=== PATIENT | male | born 1955 | race African-American/Black ===

== ENCOUNTER 2017-02-03 07:30 | Inpatient (IN) | payer OTHER ==
[~2017-02-03] VITALS: Ht 177.8 cm; Wt 106.1 kg
--- NOTE | 2017-02-19 22:51 | Pre-op HX & Phy Repo 2 SIG ---
DATE OF ADMISSION: 02/20/2017 HISTORY OF PRESENT ILLNESS: The patient is a 61-year-old patient preoperative sexual reassignment surgery male to female in overall good health. OPERATIONS: none. MEDICATIONS: Hormones. ALLERGIES: Penicillin causes severe skin reaction. REVIEW OF SYSTEMS: The patient has no gastrointestinal symptoms and has a normal bowel movement every morning. The patient has nocturia x1. PHYSICAL EXAMINATION: VITAL SIGNS: The patient is 5 feet 10 inches and 230 pounds. ABDOMEN: Slightly obese, but soft. EXTREMITIES: Femoral pulses are 2+ bilaterally. RECTAL: Reveals the perianal skin is normal and there is no prolapse with straining. IMPRESSION: Gender dysphoria, preoperative sexual reassignment surgery male to female. DISCUSSION: I have had a full discussion with the patient regarding my role in the performance of the surgery by Dr. Brandon Kulkarni, involving creation of the space for the vagina as well as sigmoidoscopy. I have discussed the nature of the procedure and risks including bleeding, infection, trauma to urinary tract or rectum that could require additional procedures including possible colostomy, and urinary or evacuation difficulties postoperatively that could require additional treatment. All questions have been answered. The patient understands and agrees to proceed. Mikie Mae M.D. DR: SARAH JOB#: [id number] CC: ELAINA
[2017-02-20] VITALS (11 sets, daily range): BP systolic 105–174; BP diastolic 47–99
[2017-02-20] MEDS ORDERED: ATRIPLA TABLET1 EAC1 ORAL (06:23)
[2017-02-20] MEDS ORDERED: ESTRADIOL1 M1 PO (06:23)
[2017-02-20] MEDS ORDERED: Lidocaine 1% MPF 10mg/ml 5ml ONE (07:00)
[2017-02-20] MEDS ORDERED: Propofol 10mg/ml 20ml IV ONE (07:00)
[2017-02-20] MEDS ORDERED: LR 1000ml ONE (07:00)
[2017-02-20] MEDS ORDERED: fentaNYL 250mcg/5ml ONE (07:00)
[2017-02-20] MEDS ORDERED: Zemuron 50mg/5ml Inj IV ONE (07:00)
[2017-02-20] MEDS ORDERED: Midazolam 2mg/2ml Inj ONE (07:00)
[2017-02-20] MEDS ORDERED: Sterile Water Irrig 1000ml IRRIG ONE (07:00)
[2017-02-20] MEDS ORDERED: NS Irrig 1000ml ONE (07:00)
[2017-02-20] MEDS ORDERED: Succinylcholine 20mg/ml 10ml vial ONE (07:00)
[2017-02-20] MEDS ORDERED: Dexamethasone 4mg/ml vial ONE (07:00)
[2017-02-20] MEDS ORDERED: Surgicel 4in x 8in TOPIC ONE (07:05)
[2017-02-20] MEDS ORDERED: Bacitracin 50000 Units Vial ONE (07:06)
[2017-02-20] MEDS ORDERED: Bacitracin Oint 15gm Tube TOPIC ONE (07:06)
[2017-02-20] MEDS ORDERED: Lidocaine 0.5% Epi 50 mL Vial ONE (07:06)
[2017-02-20] MEDS ORDERED: Bupivacaine w/Epi 0.25% 30ml Vial INJ ONE (07:06)
[2017-02-20] MEDS ORDERED: Lidocaine 1% 10mg/ml/Epi 0.005mg/ml 30ml vial INJ ONE (07:06)
[2017-02-20] MEDS ORDERED: Clindamycin 600mg 50 ML IV ONE (07:15)
--- NOTE | 2017-02-20 07:21 | Anethesia Preoperative Eval ---
Anesthesia Pre-op PMH/ROS General Date of Evaluation: February 20, 2017 Anesthesiologist: Gray ASA Score: ASA 2 Mallampati Score Class I : Soft palate, uvula, fauces, pillars visible Class II: Soft palate, uvula, fauces visible Class III: Soft palate, base of uvula visible Class IV: Only hard plate visible Mallampati Classification: Class II Surgeon: Shad Diagnosis: Gender dysphoria Surgical Procedure: SExual reassignment-male to female Anesthesia History: none Family History: no anesthesia problems Allergies: Coded Allergies: PENICILLINS (Verified Allergy, Unknown, 02/19/17) Medications: see eMAR Past Medical History Cardiovascular: Denies: CAD, HTN, [place], arrhythmia, other, valve dz Pulmonary: Denies: COPD, DEANDRA, asthma, other Gastrointestinal/Genitourinary: Denies: CRI, ESRD, GERD, other Neurologic/Psychiatric: Denies: CVA, TIA, dementia, depression/anxiety, other Endocrine: Denies: DM, hypothyroidism, other, steroids HEENT: Denies: HUGHES (L), HUGHES (R), cataract (L), cataract (R), glaucoma, other Hematology/Immune: Reports: other - HIV, Denies: DVT, anemia, bleeding disorder Musculoskeletal/Integumentary: Denies: DDD, DJD, OA, RA, edema, other Other: obesity PSxH Narrative: Denies Anesthesia Pre-op Phys. Exam Physician Exam Last Vital Signs Date Time Temp Pulse Resp B/P Pulse Ox O2 Delivery O2 Flow Rate FiO2 02/20/17 06:24 98.0 95 18 136/78 98 Room Air Constitutional: NAD Cardiovascular: RRR Respiratory: CTA Airway Exam Mallampati Score: Class II MO: full ROM: full Teeth: intact Anesthesia Pre-op A/P Labs see chart Studies Pre-op Studies: EKG - sr Risk Assessment & Plan Assessment: ASA II Plan: GA-ETT Status Change Before Surgery: No Pre-Antibiotics Drug: Ancef 2g and gentamycin 80mg Given Within 1 Hr of Incision: Yes Time Given: 07:45 CASSY RAMIREZ M.D. February 20, 2017 07:21
[2017-02-20] MEDS ORDERED: Clindamycin 0 ML ONE (07:34)
[2017-02-20] MEDS ORDERED: GENTAMICIN PHARMACY TO DOSE MISC SCH (15:00)
[2017-02-20] MEDS ORDERED: LR 1000ml 1,000 ML IVLG SCH (15:05)
--- NOTE | 2017-02-20 15:08 | Pre-Procedure Note/Attestation ---
Pre-Procedure Note/Attestation Complete Prior to Procedure Planned Procedure: not applicable Procedure Narrative: Male to female gender reassignment Indications for Procedure Pre-Operative Diagnosis: Gender dysphoria Attestation I attest that I discussed the nature of the procedure; its benefits; risks and complications; and alternatives (and the risks and benefits of such alternatives ), prior to the procedure, with the patient (or the patient's legal food service sales representatives). I attest that, if there was a reasonable possibility of needing a blood transfusion, the patient (or the patient's legal food service sales representatives) was given the [facility] standardized written summary, pursuant to the Quentin Boron Blood Safety Act ([place] Health and Safety Code # 1645, as amended). I attest that I re-evaluated the patient just prior to the surgery and that there has been no change in the patient's H&P, except as documented below: CONSTANCE DAS February 20, 2017 15:08
--- NOTE | 2017-02-20 15:10 | Operative Note - PDOC ---
Operative Note Operative Note Pre-op Diagnosis: Gender dysphoria Procedure: Male to female sexual reassignment Post-op Diagnosis: same Surgeon: Shad Corner Cutter: Bradley Vazquez Anesthesia: general Specimen: yes Complications: none Condition: stable Estimated Blood Loss: volume Drains: CONSTANCE MEJIA February 20, 2017 15:10
--- NOTE | 2017-02-20 15:12 | Immediate Post-Op Evaluation ---
Immediate Post-Op Evalulation Immediate Post-Op Evalulation Procedure: Sexual reassignment surgery-male to female Date of Evaluation: February 20, 2017 Time of Evaluation: 15:12 IV Fluids: 3.8L Blood Products: 0 Estimated Blood Loss: 250 Urinary Output: 200 Blood Pressure Systolic: 133 Blood Pressure Diastolic: 80 Pulse Rate: 92 Respiratory Rate: 15 O2 Sat by Pulse Oximetry: 100 Temperature (Fahrenheit): 99.1 Pain Score (1-10): 0 Nausea: No Vomiting: No Complications 0 Patient Status: awake, reacts, patent, extubated, none Hydration Status: adequate Drug: Ancef 2g Given Within 1 Hr of Incision: Yes Time Given: 07:45 CASSY RAMIREZ M.D. February 20, 2017 15:12
[2017-02-20] MEDS ORDERED: Naloxone 0.4mg/ml Inj IVP PRN (15:15)
[2017-02-20] MEDS ORDERED: Ketorolac 30mg Inj IV PRN (15:15)
[2017-02-20] MEDS ORDERED: fentaNYL 100 mcg/2 mL IV PRN (15:15)
[2017-02-20] MEDS ORDERED: Rate Change PCA 1 Each MISC PRN (15:15)
[2017-02-20] MEDS ORDERED: DiphenhydrAMINE 50mg/ml Inj IVP PRN ×2 (15:15)
[2017-02-20] MEDS ORDERED: Metoclopramide 10mg/2ml Inj IVP PRN (15:15)
[2017-02-20] MEDS ORDERED: Midazolam 2mg/2ml Inj IVP PRN (15:15)
[2017-02-20] MEDS ORDERED: Hydromorphone 0.5mg/0.5ml inj IVP PRN (15:15)
[2017-02-20] MEDS: PCA HYDROmorphone 1mg/ml 30 ML IV PRN (16:04)
[2017-02-20 16:33] LABS: MEAN CORPUSCULAR HEMOGLOBIN 29.9 PG (27.0-31.0); MEAN CORPUSCULAR HGB CONC 32.5 G/DL (32.0-36.0); MEAN CORPUSCULAR VOLUME 92 FL (80-99); MEAN PLATELET VOLUME 5.4 FL (6.5-10.1); PLATELET COUNT 298 K/UL (150-450); RED BLOOD COUNT 3.88 M/UL (4.20-5.40); RED CELL DISTRIBUTION WIDTH 12.6 % (11.6-14.8); WHITE BLOOD COUNT 17.1 K/UL (4.8-10.8)
[2017-02-20] MEDS: D5 1/2NS w/KCl 20mEq 1,000 ML IV SCH (18:22)
[2017-02-20 18:40] LABS: BAND NEUTROPHILS % (MANUAL) 1 % (0-8); LYMPHOCYTES % (MANUAL) 4 % (20-45); NEUTROPHILS % (MANUAL) 92 % (45-75); NUCLEATED RED BLOOD CELLS 1 /100 WBC; TOTAL CELLS COUNTED 100
[2017-02-20 18:41] LABS: BASOPHILS % (MANUAL) 0 % (0-2); EOSINOPHILS % (MANUAL) 0 % (0-3); PLATELET ESTIMATE ADEQUATE; PLATELET MORPHOLOGY NORMAL
[2017-02-20] MEDS: PCA shift volume MISC SCH (19:00)
[2017-02-20] MEDS: ceFAZolin sod 1 GM in D5W 55 ML IV SCH ×2 (19:30→20:44)
[2017-02-20] MEDS ORDERED: GENTAMICIN PHARMACY TO DOSE MISC PRN (21:00)
[2017-02-20] MEDS ORDERED: GENTAMICIN IVPB ONE (21:00)
[2017-02-20] MEDS ORDERED: NS IVPB ONE (21:00)
--- NOTE | 2017-02-20 22:16 | Operative Note - Dictated ---
DATE OF OPERATION: 02/20/2017 SURGEON: Mikie Mae M.D. ANESTHESIOLOGIST: Dr. Castellano. PREOPERATIVE DIAGNOSIS: Gender dysphoria. POSTOPERATIVE DIAGNOSIS: Gender dysphoria. OPERATION PERFORMED: Creation of the space for the vagina. DESCRIPTION OF PROCEDURE: I entered the operating room at the appropriate time after initial steps by the primary surgeon, Dr. Brandon Kulkarni. Using cautery, I incised the central perineal tendon, and using cautery for hemostasis, created a space 10.5 cm to 11 cm in depth between the urethra, prostate, and bladder anteriorly and the rectum posteriorly. I maintained a rigid sigmoidoscope in the rectum during the procedure. The field was irrigated and hemostasis was secured. I then placed saline into the field and with the proctoscope with insufflation and examination revealing no extravasation and no evidence of trauma. The insufflated air was suctioned out and the scope removed. A Betadine soaked vaginal pack was placed into the space created for the vagina. Dr. Brandon Kulkarni then continued the procedure. Mikie Mae M.D. DR: Bonnie JOB#: [id number] CC:
[2017-02-21] MEDS: ceFAZolin sod 1 GM in D5W 55 ML IV SCH ×4 (00:03→21:34)
[2017-02-21 00:30] VITALS: BP 153/68
--- NOTE | 2017-02-21 01:01 | Operative Note - Dictated ---
DATE OF OPERATION: 02/20/2017 PREOPERATIVE DIAGNOSIS: Male to female gender dysphoria. POSTOPERATIVE DIAGNOSIS: Male to female gender dysphoria. PROCEDURE: Male to female sexual reassignment using penile inversion technique with vaginoplasty augmented with scrotal full-thickness skin graft. SURGEON: Brandon Kulkarni M.D. DYE AND CHEMICAL COORDINATOR: Bradley Vazquez M.D. ANESTHESIA: General. INDICATIONS: The patient is a 61-year-old male to female with transgender patient, who has fulfilled the requirements for sexual reassignment. She has been living as a woman for over 20 years along with hormones during that time. The patient has been cleared by the psychiatrist. She underwent genital electrolysis. OPERATION: The patient was given general anesthesia. She was placed on lithotomy position and prepped and draped in usual manner. Scrotal full-thickness skin graft was taken from the penoscrotal junction to the perineum with a lateral scrotum remaining on each side. The skin graft was then set aside for use for the vagina. The patient was uncircumcised. A circumcision incision was then made distally. The penile skin was elevated off the Leong's fascia. The penis was then transposed into the defect left by the removal of the scrotum. The right testicle was followed along the tunica vaginalis to the external ring. The spermatic cord was clamped, cut and double suture ligated with #0 silk sutures. Similar procedure was performed on the left side. Dissection was then proceeded down to the crura on each side. A #1 Ethibond suture was then taken around the dean of each corporal body. Subsequently, a blunt and sharp dissection was done over the pubic symphysis to dissect the subcutaneous tissue off of the lower rectus abdominis muscle. This was done enough to mobilize the pubic skin and penile skin so that it could be inverted into the neovagina without significant tension. In order to keep it in place, a bolster #1 Prolene through the skin down to the rectus and through the skin again it was tied over a [address] Mikie Mae then proceeded to dissect the vaginal space. She was able to get approximately 1.5 cm of depth. The scrotal skin graft was then defatted to remove all subcutaneous tissue. A 14 cm x 4 cm vaginal stent was then used to perform the skin graft. It was actually a specially made tissue bridal service sales and management for this use. The skin graft was formed over the bridal service sales and management with interrupted and running 3-0 Vicryl sutures. The inverted penile skin was then sutured to the skin graft over the vaginal stent. Much of the foreskin was removed. There was more than adequate penile skin. The skin graft was performed with approximately 100 mL inside the vaginal stent. Incision was then made just lateral to the urethra on each side through the tunica albuginea. The tunica was then opened from the dean on each side of the distal penis. The spongy tissue was dissected off the inside of the tunica and removed. The cavernosal vessels were clamped, cut, and suture ligated with 4-0 Monocryl sutures. At the 12 o'clock position of the glans, pentagonal shaped portion of the glans was marked to make the neoclitoris. The base of the neoclitoris was on the distal tunica. Incision was then made through the glans around the neoclitoris. Using the Sanchez scissors through the tip of the tunica albuginea, the neoclitoris was then released from the rest of the glans with excellent bleeding from the tip of the neoclitoris. The neoclitoris was intact with the tunica on the neurovascular bundles. There was some distal penile skin that was left attached to the neoclitoris. This was sutured on each side and the neoclitoris with running 5-0 Monocryl. It was then sutured to itself dorsally to create a clitoral russell. The tunica was then folded over itself over the pubic symphysis and sutured in place with 2-0 Monocryl sutures to stabilize the neoclitoris. The bulbocavernosus muscle was then dissected off of the bulb of the urethra. The urethra was then cut in the mid bulb. The spongy tissue was then sharply removed as much as possible. Interrupted 4-0 Monocryl sutures was taken to the spongy tissue to try to close the space. The urethra was spatulated at the 6 o'clock position. The urethral mucosa was then sutured to the bulbous spongiosum with running locking 4-0 Monocryl suture. The vaginal packing was then removed. The penile vaginal stent was then inserted in to vaginal space. An incision was made at the 6 o'clock position, so that there would not be a high posterior lip. It was then sutured in place with interrupted 3-0 Vicryl sutures. An inverted Y incision was made and the penile skin over the neoclitoris so that the neoclitoris could be delivered and sutured in place with running 5-0 Monocryl suture. A vertical incision was made through the inverted penile skin over the neourethra. The urethra was then delivered through the inverted penile skin and sutured in place with a running locking 4-0 Monocryl suture. A 2-0 Monocryl suture was then taken lateral to the neoclitoris on each side from the skin to the endopelvic fascia and out through the skin again to create a sulcus on the lateral side of the neoclitoris. Another similar suture was taken in the posterior vaginal vault through the skin to the dean and now through the skin again to create a labia minora fold on each side. A #7 Pedro-Brunner drain was then placed through a separate stab incision in the left perineum and placed lateral to the neourethra at 3 o'clock position. A #10 Romel drain was placed through the stab incision in the right perineum along the right-sided wound and then up into the pubic area. The labia majora were then performed by excising the dog-ears anteriorly on each side. Extra fat was removed on each side. The inverted penile skin was sutured to the introitus with interrupted 3-0 Monocryl sutures. Anteriorly, buried 3-0 Monocryl sutures were used through the subcutaneous tissue and the anterior labia majora with a subcuticular suture of 4-0 Monocryl in the skin. There was good symmetry of the labia majora. A bolster was then placed on each side of the introitus to prevent the vaginal stent from being expelled. A 90 mL was placed in the vaginal stent. The patient tolerated the procedure well and left the operating room in good condition. Brandon Kulkarni M.D. DR: ANAYA JOB#: [id number] CC:
[2017-02-21] MEDS: D5 1/2NS w/KCl 20mEq 1,000 ML IV SCH ×2 (02:07→09:33)
[2017-02-21 04:00] VITALS: BP 124/80
[2017-02-21 05:23] LABS: BASOPHILS % (AUTO) 0.3 % (0.0-2.0); EOSINOPHILS % (AUTO) 0.1 % (0.0-3.0); LYMPHOCYTES % (AUTO) 12.8 % (20.0-45.0); MEAN CORPUSCULAR HGB CONC 32.5 G/DL (32.0-36.0); MEAN CORPUSCULAR VOLUME 92 FL (80-99); MEAN PLATELET VOLUME 5.5 FL (6.5-10.1); MONOCYTES % (AUTO) 14.2 % (1.0-10.0); NEUTROPHILS % (AUTO) 72.6 % (45.0-75.0); PLATELET COUNT 278 K/UL (150-450); RED BLOOD COUNT 3.78 M/UL (4.20-5.40); WHITE BLOOD COUNT 8.4 K/UL (4.8-10.8)
[2017-02-21] MEDS: PCA shift volume MISC SCH ×2 (07:18→19:00)
--- NOTE | 2017-02-21 07:53 | General Progress Note ---
Progress Note Progress Note Afebrile. VSS. Mild edema. Feeling fine. Hct 35. Doing very well. CONSTANCE DAS February 21, 2017 07:53
[2017-02-21 08:00] VITALS: BP 117/60
[2017-02-21 12:00] VITALS: BP 123/69
--- NOTE | 2017-02-21 12:33 | 48 Hour Post Anesthesia Eval ---
Post Anesthesia Evaluation Procedure: Sexual reassignment surgery-male to female Date of Evaluation: February 21, 2017 Time of Evaluation: 12:32 Blood Pressure Systolic: 117 0: 60 Pulse Rate: 96 Respiratory Rate: 18 Temperature (Fahrenheit): 98.2 O2 Sat by Pulse Oximetry: 99 Airway: patent Nausea: No Vomiting: No Pain Intensity: 2 Hydration Status: adequate Cardiopulmonary Status: Stable Mental Status/LOC: patient returned to baseline Follow-up Care/Observations: 0 Post-Anesthesia Complications: 0 Follow-up care needed: N/A Hiren Love MD February 21, 2017 12:33
[2017-02-21] MEDS: PCA HYDROmorphone 1mg/ml 30 ML IV PRN (14:50)
[2017-02-21] MEDS ORDERED: Tubing IV Secondary IV ONE (15:20)
[2017-02-21 16:00] VITALS: BP 118/62
[2017-02-21 20:00] VITALS: BP 125/68
[2017-02-22] VITALS: BP 128/70
[2017-02-22 04:00] VITALS: BP 135/73
[2017-02-22] MEDS: ceFAZolin sod 1 GM in D5W 55 ML IV SCH ×3 (06:11→22:05)
[2017-02-22 06:44] LABS: ANION GAP 13 (5-15); CALCIUM 8.4 mg/dL (8.6-10.2); CARBON DIOXIDE 25 mEQ/L (20-30); CHLORIDE 102 mEQ/L (98-107); CREATININE 0.6 mg/dL (0.5-0.9); GLOMERULAR FILTRATION RATE > 60 mL/min (>60); HEMOLYSIS 4; POTASSIUM 3.8 mEQ/L (3.4-4.9); SODIUM 140 mEQ/L (135-145)
[2017-02-22] MEDS: PCA shift volume MISC SCH (07:00)
[2017-02-22 08:00] VITALS: BP 145/87
--- NOTE | 2017-02-22 09:02 | General Progress Note ---
Progress Note Progress Note Afebrile. Mild drainage. Wound fine.. Hct 35 THIAGOMIKIY February 22, 2017 09:02
[2017-02-22 12:00] VITALS: BP 131/82
[2017-02-22] MEDS ORDERED: Norco 5mg/325mg tab ORAL PRN (15:00)
[2017-02-22 16:00] VITALS: BP 146/75
[2017-02-22] MEDS ORDERED: Rate Change PCA 1 Each MISC PRN (19:15)
[2017-02-22] MEDS ORDERED: DiphenhydrAMINE 50mg/ml Inj IVP PRN (19:30)
[2017-02-22 20:00] VITALS: BP 129/71
[2017-02-23] VITALS: BP 117/72
[2017-02-23 04:00] VITALS: BP 146/78
[2017-02-23] MEDS: ceFAZolin sod 1 GM in D5W 55 ML IV SCH ×3 (06:14→22:07)
[2017-02-23] MEDS: PCA shift volume MISC SCH ×2 (07:00→19:00)
[2017-02-23 08:00] VITALS: BP 138/73
--- NOTE | 2017-02-23 09:59 | General Progress Note ---
Progress Note Progress Note Afebrile. Feeling fine. Wounds fine. CONSTANCE DAS February 23, 2017 09:59
[2017-02-23 12:00] VITALS: BP 141/73
[2017-02-23] MEDS: PCA HYDROmorphone 1mg/ml 30 ML IV PRN (14:35)
[2017-02-23 16:00] VITALS: BP 141/80
[2017-02-23 20:00] VITALS: BP 132/76
[2017-02-24] VITALS: BP 130/70
[2017-02-24 04:00] VITALS: BP 132/79
[2017-02-24] MEDS: ceFAZolin sod 1 GM in D5W 55 ML IV SCH ×3 (05:14→22:07)
[2017-02-24] MEDS: PCA shift volume MISC SCH ×2 (07:04→19:17)
[2017-02-24 08:00] VITALS: BP 125/74
--- NOTE | 2017-02-24 08:48 | General Progress Note ---
Progress Note Progress Note Afebrile. Wounds fine. Doing well CONSTANCE DAS February 24, 2017 08:48
[2017-02-24 12:00] VITALS: BP 132/85
[2017-02-24] MEDS: PCA HYDROmorphone 1mg/ml 30 ML IV PRN (14:48)
[2017-02-24 16:00] VITALS: BP 129/85
[2017-02-24] MEDS ORDERED: Rate Change PCA 1 Each MISC PRN (18:00)
[2017-02-24] MEDS ORDERED: DiphenhydrAMINE 50mg/ml Inj IVP PRN (18:00)
[2017-02-24] MEDS ORDERED: PCA HYDROmorphone 1mg/ml 30 ML IV PRN (18:00)
[2017-02-24 20:00] VITALS: BP 119/76
[2017-02-25] VITALS: BP 131/74
[2017-02-25 04:00] VITALS: BP 122/81
[2017-02-25] MEDS: ceFAZolin sod 1 GM in D5W 55 ML IV SCH ×3 (05:39→22:09)
[2017-02-25] MEDS: PCA shift volume MISC SCH ×2 (07:07→19:00)
[2017-02-25 07:59] VITALS: BP 131/79
--- NOTE | 2017-02-25 10:43 | General Progress Note ---
Progress Note Progress Note Afebrile. Doing well. CONSTANCE DAS February 25, 2017 10:43
[2017-02-25 12:00] VITALS: BP 133/75
[2017-02-25 16:00] VITALS: BP 132/75
[2017-02-25 20:00] VITALS: BP 118/69
[2017-02-26 04:00] VITALS: BP 134/75
[2017-02-26] MEDS: ceFAZolin sod 1 GM in D5W 55 ML IV SCH (05:48)
[2017-02-26] MEDS: PCA shift volume MISC SCH (07:20)
[2017-02-26 08:00] VITALS: BP 123/74
--- NOTE | 2017-02-26 09:33 | General Progress Note ---
Progress Note Progress Note Afebrile. VSS. All drains, stent, Shearer d/cd/ . Will discharge if strong enough. CONSTANCE DAS February 26, 2017 09:33
[2017-02-26] MEDS ORDERED: Oxycodone/Acetaminophen 5-325 ORAL PRN ×2 (09:45→19:02)
[2017-02-26] MEDS: Cephalexin 500mg cap ORAL SCH ×2 (11:41→21:00)
[2017-02-26 12:00] VITALS: BP 124/78
[2017-02-26 16:00] VITALS: BP 128/63
[2017-02-26 20:00] VITALS: BP 124/88
[2017-02-27 04:00] VITALS: BP 133/77
[2017-02-27 08:00] VITALS: BP 138/93
[2017-02-27] MEDS: Cephalexin 500mg cap ORAL SCH (08:27)
--- NOTE | 2017-02-27 08:57 | General Progress Note ---
Progress Note Progress Note Afebrile,. Wounds fine. Discharge CONSTANCE DAS February 27, 2017 08:57
--- NOTE | 2017-03-01 05:57 | Discharge Summary ---
Discharge Summary Hospital Course Date of Admission February 20, 2017 at 05:16 Date of Discharge February 27, 2017 at 11:00 Admitting Diagnosis HPI Doug Senior is a 61 year old female who was admitted on February 20, 2017 at 05:16 for Gender Dysphoria Hospital Course [id number] Discharge Discharge Disposition Patient was discharged to Home (01) Discharge Diagnoses: Niru Yu NP March 01, 2017 05:57
--- NOTE | 2017-03-02 01:15 | Discharge Summary 2 SIG ---
DATE OF ADMISSION: 02/20/2017 DATE OF DISCHARGE: 02/27/2017 CO-SURGEON: Mikie Mae M.D. BRIEF HOSPITAL COURSE: The patient is a 61-year-old female who was admitted on 02/20/2017. The patient is a male to female transgender. The patient has fulfilled the requirements of sexual reassignment and has been living as a woman for over years along with hormones during that time. She has been cleared by psychiatrist. She underwent genital electrolysis on 02/20/2017. She underwent male to female sexual reassignment using penile inversion technique with vaginoplasty augmented with scrotal full-thickness skin graft assisted by Dr. Mae, who did creation of space for the vagina. Postoperatively, she was given pain management and remained afebrile. Diet was eventually advanced. Drains were removed and the patient was discharged home. Advised to continue Atripla. No need to continue estradiol . FINAL DISPOSITION: The patient was discharged home. FINAL DIAGNOSES: Male to female gender dysphoria, status post male to female sexual reassignment using penile inversion technique with vaginoplasty implanted with scrotal full-thickness skin graft. Brandon Kulkarni M.D. I have been assigned to dictate discharge summary on this account and I was not involved in the patient's management. Niru Yu N.P. DR: Marisel JOB#: [id number] CC:
== END 2017-02-27 11:00 | disposition home or self-care (01) | DRG 876 ==
LOC: EDSEX 02-20 05:16 → SDSOVERFLO 02-20 05:16 → 3E 02-20 16:55
PROC: 0W4M070 Creation of Vagina in Male Perineum with Autologous Tissue Substitute, Open Approach (ICD-10-PCS; principal; 2017-02-20 07:30)
DX: F64.0 Transsexualism (principal)
CPT/HCPCS: 36415; 80048; 85007; 85025; 86850; 86900; 86901; 86920; 87081; 94003; 94150; 94760; J2250; J2405; S0077